=== PATIENT | female | born 1960 | race Hispanic/Latino ===

== ENCOUNTER 2019-05-18 09:29 | Outpatient (CLI) | payer BC ==
--- NOTE | 2019-05-18 13:04 | Magnetic Resonance Report ---
. MR LE joint LT wo/w con INDICATION: LEFT HIP MASS/LUMP. TECHNIQUE: Multiplanar, multisequence MR images were obtained. COMPARISON: None available. FINDINGS: This study was performed with and without IV contrast. Mesh is present from left inguinal herniorrhap hy. An intramuscular lipoma is seen within the left lower quadrant above the hernia mesh measuring 3. 1 x 4.5 cm in AP by transverse diameter best seen on series 4 image 9 and sagittal image 14. No other hernia or soft tissue mass is visualized. No abnormal bone marrow signal intensity is seen within th e pelvis or left hip. No abnormal signal intensity is seen within the left hip musculature. No abnorm al enhancement is seen on postcontrast images. IMPRESSION: 1. 4.5 cm intramuscular lipoma within the left lower quadrant abdominal wall musculature just above t he hernia mesh. Signer Name: Edgar Malave MD Signed: 05/18/2019 1:00 PM Workstation Name: [id number]
== END 2019-05-18 09:30 | disposition home or self-care (01) ==
LOC: SPVIMAG 09:29
PROVIDERS: ATTEND Surgery
DX: D17.5 Benign lipomatous neoplasm of intra-abdominal organs (principal)